=== PATIENT | male | born 1975 | race Caucasian/White ===

== ENCOUNTER 2017-07-21 10:41 | Day surgery (SDC) | payer OTHER ==
[2017-07-21] MEDS ORDERED: CEFAZOLIN 2 GM/50 ML (PMX) 50 ML IVPB (11:37)
[2017-07-21] MEDS ORDERED: PROPOFOL 20 ML (12:29)
[2017-07-21] MEDS ORDERED: CEFAZOLIN 1 GM INJ (12:29)
[2017-07-21] MEDS ORDERED: MIDAZOLAM 1 MG/ML 2 ML INJ (12:29)
[2017-07-21] MEDS ORDERED: ROCURONIUM 50 MG INJ (12:29)
[2017-07-21] MEDS ORDERED: HYDROmorphONE (0.2 MG/ML) 10ML SYG IV ×3 (13:30)
[2017-07-21] MEDS ORDERED: METOCLOPRAMIDE 10 MG INJ IV (13:30)
[2017-07-21] MEDS ORDERED: DIPHENHYDRAMINE 50 MG INJ IV (13:30)
[2017-07-21] MEDS ORDERED: MEPERIDINE 25 MG INJ IV (13:30)
[2017-07-21] MEDS ORDERED: EPHEDrine SULFATE 50 MG/5 ML SYG IV (13:30)
[2017-07-21] MEDS ORDERED: ONDANSETRON 4 MG INJ IV (13:30)
[2017-07-21] MEDS ORDERED: OXYCODONE/ACETAMINOPHEN (5/325) TAB PO ×2 (13:30)
[2017-07-21] MEDS ORDERED: FENTAnyl 50 MCG/ML VIAL IV ×3 (13:30)
[2017-07-21] MEDS ORDERED: DEXAMETHASONE 4 MG/ML 1 ML INJ (13:32)
[2017-07-21] MEDS ORDERED: KETOROLAC 30 MG INJ (13:32)
[2017-07-21] MEDS ORDERED: ONDANSETRON 4 MG INJ (13:32)
[2017-07-21] MEDS ORDERED: METOCLOPRAMIDE 10 MG INJ (13:32)
[2017-07-21] MEDS ORDERED: HYDROCODONE/APAP (5/325) TAB PO (14:00)
== END 2017-07-21 14:55 | disposition home or self-care (01) ==
LOC: SDS 10:41
DX: A63.0 Anogenital (venereal) warts (principal)
CPT/HCPCS: 11422; 88305